=== PATIENT | male | born 1980 | race Caucasian/White ===

== ENCOUNTER 2020-01-23 23:59 | Emergency (ER) | payer BC, OTHER ==
--- NOTE | 2020-01-24 00:43 | XR ---
EXAM: XR Left Foot Complete, 3 or More Views CLINICAL HISTORY: ITS.REASON XR Reason: pain TECHNIQUE: Frontal, lateral and oblique views of the left foot. COMPARISON: No previous study. FINDINGS: Bones/joints: Mild to moderate osteoarthritic changes at the DIP and PIP joints. Osteopenia. No acute fracture, dislocation, or destructive process. Soft tissues: The soft tissues are unremarkable. No radiopaque foreign body. IMPRESSION: 1. Mild osteoarthritic changes. 2. No acute fracture, dislocation, or destructive process. 3. If there is concern for cellulitis or osteomyelitis, magnetic resonance imaging will provide additional information.
--- NOTE | 2020-01-24 00:52 | ED ---
General Adult HPI - General Chief complaint: Extremity Injury, Lower Stated complaint: left ankle extremity Time Seen by Provider: 01/24/20 00:18 Source: patient, RN notes reviewed, old records reviewed Mode of arrival: ambulatory Limitations: no limitations - History of Present Illness Initial comments: 39-year-old male patient presents to ED for evaluation of left foot injury. Patient reports that he was on a step and his foot slips and went down about 2 feet he twisted ankle however does not have any ankle pain rather the dorsal and plantar aspect of foot are causing him some continued pain. Has been ambulatory. Denies any other injury denies any other complaints. Systemic: Pt denies fatigue, fever/chills, rash. Pt denies weakness, night sweats, weight loss. Neuro: Pt denies headache, visual disturbances, syncope or pre-syncope. HEENT: Pt denies ocular discharge or irritation, otalgia, rhinorrhea, pharyngitis or notable lymphadenopathy. Cardiopulmonary: Pt denies chest pain, SOB, heart palpitations, dyspnea on exertion. Abdominal/GI: Pt denies abdominal pain, n/v/d. : Pt denies dysuria, burning w/ urination, frequency/urgency. Denies new onset urinary or bowel incontinence. Neuro: Pt denies new onset weakness, paresthesias. - Related Data Allergies Allergy/AdvReac Type Severity Reaction Status Date / Time No Known Allergies Allergy Verified 01/24/20 00:11 Review of Systems ROS Statement: Those systems with pertinent positive or pertinent negative responses have been documented in the HPI. ROS Other: All systems not noted in ROS Statement are negative. Past Medical History Past Medical History: No Reported History History of Any Multi-Drug Resistant Organisms: None Reported Past Surgical History: Adenoidectomy, Orthopedic Surgery, Tonsillectomy Additional Past Surgical History / Comment(s): left wrist Past Psychological History: No Psychological Hx Reported Smoking Status: Never smoker Past Alcohol Use History: Occasional Past Drug Use History: None Reported General Exam - General Exam Comments Initial Comments: Constitutional: NAD, AOX3, Pt has pleasant affect. HEENT: NC/AT, trachea midline, neck supple, no lymphadenopathy. External ears appear normal, without discharge. Mucous membranes moist. Eyes PERRLA, EOM intact. There is no scleral icterus. No pallor noted. Cardiopulmonary: RRR, no murmurs, rubs or gallops, no JVD noted. Lungs CTAB in anterior and posterior lebron. No peripheral edema. Abdominal exam: Abdomen soft and non-distended. Neuro: CN II-XII grossly intact. No nuchal rigidity. No raccon eyes, no luna sign, no hemotympanum. No cervical spinal tenderness. MSK: Tenderness to the dorsal aspect of the foot as well as the plantar midfoot region. Sensation intact. Distal pulses are intact and equal. no skin changes. No ankle tenderness. No proximal tib-fib tenderness. Limitations: no limitations Course Vital Signs 01/24/20 00:09 Temperature 98.5 F Pulse Rate 93 Respiratory 16 Rate Blood Pressure 156/97 O2 Sat by Pulse 97 Oximetry Medical Decision Making - Medical Decision Making 39 year-old male patient presents to ED for evaluation of foot sprain. Midfoot tenderness and dorsal foot tenderness is positive. Influenza negative. Patient placed in a posterior ankle splint neurovascular intact before and after splint placement discharged with outpatient orthopedic follow-up with crutches not bear weight on lower extremity. Case discussed with Dr. Jesus. Disposition Clinical Impression: Foot sprain Disposition: HOME SELF-CARE Condition: Stable Instructions (If sedation given, give patient instructions): Foot Sprain (ED) Additional Instructions: follow-up with primary care provider as well as orthopedic consult tomorrow. Continue to wear splint. Use crutches and not bear weight on left lower extremity. return to ER if any worsening symptoms. Is patient prescribed a controlled substance at d/c from ED?: No Referrals: Skyler Kilgore MD [Primary Care Provider] - 1-2 days Luis Samson DO [Doctor of Osteopathic Medicine] - 1-2 days
[2020-01-24 01:50] VITALS: RESP 17
[2020-01-24 01:51] VITALS: BP 138/87; PULSE 87; TEMP 98.2
== END 2020-01-24 01:45 | disposition home or self-care (01) ==
LOC: EC 23:59
DX: S93.602A Unspecified sprain of left foot, initial encounter (principal); W10.9XXA Fall (on) (from) unspecified stairs and steps, initial encounter; X50.1XXA Overexertion from prolonged static or awkward postures, initial encounter; Y92.009 Unspecified place in unspecified non-institutional (private) residence as the place of occurrence of the external cause
CPT/HCPCS: 29515; 99284

== ENCOUNTER → 2023-01-19 | Outpatient (CLI) | payer BC ==
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
== END | disposition home or self-care (01) ==
LOC: RADMRIMAIN 11:48
PROVIDERS: ATTEND Orthopaedic Surgery
DX: M66.0 Rupture of popliteal cyst (principal); M25.561 Pain in right knee

== ENCOUNTER → 2023-02-13 | Outpatient (CLI) | payer BC ==
[2023-02-13 17:00] LABS: Anion Gap 12.1 mmol/L (4.00-12.00); Carbon Dioxide 25.9 mmol/L (21.6-31.8); Potassium 4.3 mmol/L (3.5-5.5)
[2023-02-13 17:10] LABS: Basophils # (A) 0.05 X 10*3/uL (0.00-0.10); Basophils % (A) 0.8 %; Eosinophils # (A) 0.07 X 10*3/uL (0.04-0.35); Eosinophils % (A) 1.1 %; HCT 49.1 % (39.6-50.0); Lymphocytes # (A) 1.15 X 10*3/uL (0.90-5.00); Lymphocytes % (A) 18.1 %; MCH 28.2 pg (27.0-32.0); MCHC 32.6 g/dL (32.0-37.0); MCV 86.6 FL (80.0-97.0); Mean Platelet Volume 11.8 FL (9.5-12.2); Monocytes # (A) 0.38 X 10*3/uL (0.20-1.00); NRBC Per 100 WBC 0 X 10*3/uL (0.00-0.01); Neutrophils # (A) 4.69 X 10*3/uL (1.80-7.70); Neutrophils % (A) 73.8 %; Platelet Count 164 X 10*3/uL (140-440); RBC 5.67 X 10*6/uL (4.40-5.60); RDW 14.2 % (11.5-14.5); WBC 6.35 X 10*3/uL (4.50-10.00)
== END | disposition home or self-care (01) ==
LOC: LABPAT 09:46
PROVIDERS: ATTEND Orthopaedic Surgery
DX: Z01.812 Encounter for preprocedural laboratory examination (principal); M23.91 Unspecified internal derangement of right knee
CPT/HCPCS: 80051; 85025

== ENCOUNTER 2023-02-21 07:07 | Day surgery (SDC) | payer BC ==
[2023-02-18 09:00] VITALS: BMI 29.4
--- NOTE | 2023-02-21 01:10 | HP ---
HISTORY AND PHYSICAL DATE OF SURGERY: 02/21/2023. HISTORY OF PRESENT ILLNESS: Jaylan Feliciano is a 42-year-old gentleman seen with progressive right knee pain. We discussed options for treatment. He elected to proceed with right knee arthroscopy. Consent is obtained. PAST MEDICAL HISTORY: Noncontributory. PAST SURGICAL HISTORY: Noncontributory. DAILY MEDICATIONS: Advil. ALLERGIES: None. SOCIAL HISTORY: Denies tobacco use. PHYSICAL EVALUATION OF THE RIGHT KNEE: Range of motion is -2/1 to 125 degrees. Mild to moderate effusion. Tenderness along the medial joint line with positive medial Иван's. Ligaments stable. Hip rotation without pain. Distal neurovascular exam is intact. IMAGING STUDIES: Radiographs of the right knee revealed mild osteoarthritis. MRI of right knee revealed medial meniscal tear, popliteal cyst and a possible nondisplaced fibular head fracture. IMPRESSION: Internal derangement of right knee with medial meniscal tear. PLAN: Arthroscopy of right knee with partial medial meniscectomy and debridement. MMODL / IJN: [id number] /
[~2023-02-21 07:07] MED LIST: DEXAMETHASONE SOD PHOSPHATE 4 MG/ML 1 ML VIAL IV ONE; HYDROmorphone 0.5 MG/0.5 ML SYRINGE IVP PRN; LACTATED RINGERS 1,000 ML IV SCH; LIDOCAINE 1% (10MG/ML) FOR IV START INTRADERMA PRN; ONDANSETRON 4 MG/2 ML VIAL IVP ONE; droPERidol 5 MG/2 ML VIAL IVP ONE
[2023-02-21] MEDS ORDERED: BUPIVACAINE (PF) 0.25% 30 ML VIAL MISCELLANE ONE ×2 (08:10→08:57)
[2023-02-21] MEDS ORDERED: fentaNYL (PF) 50 MCG/ML 2 ML AMP ONE (08:19)
[2023-02-21] MEDS ORDERED: KETOROLAC 15 MG/ML 1 ML VIAL ONE (08:19)
[2023-02-21] MEDS ORDERED: PROPOFOL 10 MG/ML 20 ML VIAL IV ONE (08:19)
[2023-02-21] MEDS ORDERED: LIDOCAINE 1% INJ 10MG/ML (20 ML MDV) ONE (08:19)
[2023-02-21] MEDS ORDERED: MIDAZOLAM 2 MG/2 ML VIAL ONE (08:19)
--- NOTE | 2023-02-21 09:14 | P.OP ---
Date of Procedure: 02/21/23 Preoperative Diagnosis: Internal derangement right knee Postoperative Diagnosis: 1. Tear medial meniscus right knee 2. Grade 4 chondromalacia femoral sulcus right knee 3. Reactive synovitis medial, lateral and suprapatellar compartments right knee 4. Partial ACL tear right knee Procedure(s) Performed: 1. Arthroscopic partial medial meniscectomy right knee 2. Arthroscopic microfracture femoral sulcus right knee 3. Arthroscopic partial synovectomy medial, lateral and suprapatellar compartments right knee Anesthesia: AMADEOA, local Surgeon: Honorio Tran Estimated Blood Loss (ml): 5 Pathology: none sent Condition: stable Disposition: PACU Indications for Procedure: 42-year-old gentleman seen with progressive right knee pain. After treatment options were discussed with him, he elected to proceed with arthroscopy. Operative Findings: See description of procedure Description of Procedure: Patient was taken to the operative suite. Patient underwent a general anesthetic by the department of anesthesia. Patient was given preoperative antibiotics. The right lower extremity was placed in a well-padded arthroscopic leg mendoza. The right leg was prepped and draped in the normal sterile orthopedic fashion. A lateral parapatellar and suprapatellar incision was made. Trochars were inserted. Arthroscopy was initiated. Suprapatellar pouch revealed diffuse thick reactive synovitis. The patellofemoral joint appeared to articulate congruently. There was grade 3/4 chondromalacia of the femoral sulcus with some peripheral osteochondral flap tears present. The scope was guided into the medial gutter. No loose bodies or plica were identified. The scope was then guided into the medial compartment. A medial parapatellar incision was made. Trocar inserted followed by probe. There was a radial tear involving the posterior horn medial meniscus. There was no significant chondromalacia involving the medial compartment. There was some reactive synovitis anteriorly. I performed a partial medial meniscectomy getting down to stable meniscal tissue. I performed a partial synovectomy decompressing the reactive synovitis. The residual meniscus was stable. There was good decompression of the synovitis. Scope and probe were then guided into the intercondylar notch. The ACL was identified. It appeared to be lax. An intraoperative Michael/Drawer testing we had +2/3 with an obvious partial tear off the lateral wall and instability/laxity of the anterior cruciate ligament. The PCL was stable. I did not feel that debriding out the ACL would provide any benefit from the patient. The scope and probe were then guided into lateral compartment. The lateral meniscus was probed and was found to be stable. There was thick reactive synovitis anteriorly. There was no significant chondromalac ia present. I performed a partial synovectomy. Shaver was removed. There was good decompression of the synovitis. The scope was in guided back into the suprapatellar compartment. I introduced a motorized shaver and I performed a chondroplasty of the femoral sulcus. At this point noted area of grade 4 chondromalacia measuring 1 x 2 cm. I introduced a microfracture awl and I performed a microfracture to the area penetrating the bone with resultant bleeding at the microfracture site. The residual osteochondral surface was stable. I now reintroduced our motorized shaver and performed a partial synovectomy. Shaver was removed. There was good decompression of synovitis. I now took one more look around the entire knee, no residual debris. Instruments were now removed from the joint. The joint was infiltrated with .25% Marcaine. Steri-Strips were applied to the portal sites. Sterile dressings were applied. The patient was placed into a ROSANNE hose. No tourniquet was utilized. The patient was awakened, transferred to a bed and taken to recovery stable satisfactory condition.
[2023-02-21 09:35] VITALS: TEMP 97
[2023-02-21 10:00] VITALS: BP 122/77; PULSE 59; RESP 16
== END 2023-02-21 10:19 | disposition home or self-care (01) ==
LOC: OR 07:07
PROVIDERS: ATTEND Orthopaedic Surgery
DX: S83.281A Other tear of lateral meniscus, current injury, right knee, initial encounter (principal); S83.511A Sprain of anterior cruciate ligament of right knee, initial encounter; M94.261 Chondromalacia, right knee; M65.861 Other synovitis and tenosynovitis, right lower leg
CPT/HCPCS: 29881; 29879; J2250; J1100; J0690; J2405; J2001; J3010; J1885; J2704; J0665

== ENCOUNTER 2023-08-18 08:57 | Observation (INO) | payer BC ==
[2023-08-18] MEDS: ONDANSETRON 4 MG/2 ML VIAL IVP STA (09:30)
[2023-08-18] MEDS: HYDROmorphone 0.5 MG/0.5 ML SYRINGE IVP STA ×2 (09:30→10:46)
[2023-08-18] MEDS: DIPH,PERTUS(ACELL)TETVAC-LF 0.5 ML VIAL IM ONE (09:31)
[2023-08-18 09:41] LABS: Basophils % (A) 0 %; Eosinophils # (A) 0.1 k/uL (0-0.7); Eosinophils % (A) 1 %; HCT 47.9 % (39.0-53.0); HGB 15.3 gm/dL (13.0-17.5); Lymphocytes # (A) 0.6 k/uL (1.0-4.8); Lymphocytes % (A) 6 %; MCH 28.3 pg (25.0-35.0); MCV 88.7 fL (80.0-100.0); Mean Platelet Volume 9.9; Monocytes # (A) 0.5 k/uL (0-1.0); Monocytes % (A) 5 %; Neutrophils # (A) 8.8 k/uL (1.3-7.7); Neutrophils % (A) 88 %; Platelet Count 174 k/uL (150-450); RDW 13.7 % (11.5-15.5)
[2023-08-18 09:51] LABS: ALT 41 U/L (4-49); AST 71 U/L (17-59); African American GFR (CKD) >90 (>60 ml/min/1.73 sqM); Albumin 4.7 g/dL (3.5-5.0); Alkaline Phosphatase 66 U/L (38-126); Anion Gap 9 mmol/L; Blood Urea Nitrogen 14 mg/dL (9-20); Calcium 9.4 mg/dL (8.4-10.2); Carbon Dioxide 23 mmol/L (22-30); Chloride 108 mmol/L (98-107); Glucose 102 mg/dL (74-99); Non-African American GFR(CKD) >90 (>60 ml/min/1.73 sqM); Potassium 4.4 mmol/L (3.5-5.1); Sodium 140 mmol/L (137-145); Total Protein 7.2 g/dL (6.3-8.2)
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
[2023-08-18] MEDS ORDERED: NALOXONE 0.4 MG/ML 1 ML VIAL IV PRN (11:11)
[2023-08-18] MEDS ORDERED: ACETAMINOPHEN TAB 325 MG TAB PO PRN (11:11)
[2023-08-18] MEDS ORDERED: ONDANSETRON 4 MG/2 ML VIAL IVP PRN (11:11)
[2023-08-18] MEDS ORDERED: HYDROmorphone 0.5 MG/0.5 ML SYRINGE IVP PRN (11:15)
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
[2023-08-18] MEDS: HYDROmorphone 1 MG/ML 1 ML SYRINGE IVP PRN (13:55)
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
[2023-08-18] MEDS: HYDROcodone/APAP 5-325MG 1 EACH TAB PO PRN (22:59)
[2023-08-19 02:55] VITALS: RESP 20
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
[2023-08-19 09:03] LABS: HCT 39.7 % (39.6-50.0); HGB 13.1 g/dL (13.0-17.0); MCH 28.8 pg (27.0-32.0); MCV 87.3 FL (80.0-97.0); Mean Platelet Volume 12.4 FL (9.5-12.2); NRBC Per 100 WBC 0 X 10*3/uL (0.00-0.01); Platelet Count 132 X 10*3/uL (140-440); RBC 4.55 X 10*6/uL (4.40-5.60); RDW 13.9 % (11.5-14.5); WBC 6.17 X 10*3/uL (4.50-10.00)
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
[2023-08-19 09:04] LABS: Basophils # (A) 0.03 X 10*3/uL (0.00-0.10); Basophils % (A) 0.5 %; Eosinophils # (A) 0.06 X 10*3/uL (0.04-0.35); Lymphocytes # (A) 0.96 X 10*3/uL (0.90-5.00); Lymphocytes % (A) 15.6 %; Monocytes # (A) 0.65 X 10*3/uL (0.20-1.00); Monocytes % (A) 10.5 %; Neutrophils # (A) 4.44 X 10*3/uL (1.80-7.70); Neutrophils % (A) 71.9 %
[2023-08-19] MEDS: KETOROLAC 15 MG/ML 1 ML VIAL IVP SCH (09:13)
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
[2023-08-19 15:49] VITALS: BP 126/68; PULSE 85; TEMP 98.8
[2023-08-19] MEDS ORDERED: HEPARIN SODIUM,PORCINE 5,000 UNIT/ML 1 ML VIAL SQ SCH (21:00)
[2023-08-19] MEDS ORDERED: FAMOTIDINE 20 MG TAB PO SCH (21:00)
== END 2023-08-19 16:08 | disposition home or self-care (01) ==
LOC: EC 08:57 → 4SSUR 11:19 → INTOOBSV 11:19 → 4SSUR 19:44 → UNDODISIN 08-19 16:08
PROVIDERS: ADMIT Surgery; ATTEND Surgery
DX: S22.42XA Multiple fractures of ribs, left side, initial encounter for closed fracture (principal); S22.31XA Fracture of one rib, right side, initial encounter for closed fracture; S27.321A Contusion of lung, unilateral, initial encounter; V94.9XXA Unspecified water transport accident, initial encounter; S49.92XA Unspecified injury of left shoulder and upper arm, initial encounter; F17.200 Nicotine dependence, unspecified, uncomplicated
CPT/HCPCS: 96376 ×2; 96375 ×2; 90471; 96374; 99285; 36415; 80053; 83605; 85025 ×2; 73000; 73020; 71045; 72125; 70450; 71260; 74177; 90715; G0378 ×2; J2405; J1170 ×3; J1885; Q9967